=== PATIENT | female | born 1965 | race Caucasian/White ===

== ENCOUNTER 2017-11-30 14:40 | Emergency (ER) | payer MEDICARE, MEDICAID ==
[~2017-11-30] VITALS: Wt 73.2 kg
[~2017-11-30 14:40] MED LIST: ADVIL 200MG TA200 MG PO; AMITRIPTYLINE H50 M1 PO; ASPIR LOW81 MG PO; AUGMENTIN ES-6050 ML PO; BUSPIRONE HYDRO10 MG PO; CEFDINIR250 MG/5 M PO; COZAAR25 M1 PO; CYCLOBENZAPRINE10 M1 PO; DURAGESIC25 MCG/HR TD; DURAGESIC50 MCG/PAT TD; JANUVIA 100MG100 MG PO; KLONOPIN0.5 MG PO; LANTUS100 U/ML; LEVOTHYROXINE0.05 MG PO; LEXAPRO20 M1 PO; LISINOPRIL5 MG PO; PENICILLIN-VK500 M1 PO; PENICILLIN250 MG/52 PO; PREDNISONE10 MG PO; TYLENOL 325MG325 MG PO; [UNRECOGNIZED DRUG - CODE] PO
[2017-11-30] MEDS ORDERED: GLUCOPHAGE PO (14:47)
[2017-11-30] MEDS ORDERED: TRAMADOL 50 MG TAB PO (14:48)
[2017-11-30] MEDS ORDERED: PIOGLITAZONE HC15 MG PO (14:48)
[2017-11-30] MEDS ORDERED: NEXIUM 40MG40 MG PO (14:49)
[2017-11-30] MEDS ORDERED: SIMVASTATIN40 M1 PO (14:50)
[2017-11-30 15:57] LABS: ALBUMIN 4.3 g/dL (3.5-5.0); ALT/SGPT 18 U/L (9-52); AST-SGOT 17 U/L (14-36); CALCIUM 9.5 mg/dL (8.4-10.2); CARBON DIOXIDE 27 mmol/L (22-30); GLUCOSE 196 mg/dL (65-105); POTASSIUM 3.8 mmol/L (3.6-5.0); SODIUM 138 mmol/L (137-145); TOTAL BILIRUBIN 0.7 mg/dL (0.2-1.3); TOTAL PROTEIN 7.3 g/dL (6.3-8.2)
[2017-11-30 15:58] LABS: EOS # 0.1 (0.04-0.40); EOS % 0.4 % (1.0-5.0); HEMATOCRIT 41.9 % (37.0-47.0); LYMPH# 2.1 (1.50-4.00); MEAN CELL VOLUME 84 fl (78-100); MEAN CORPUSCULAR HEMOGLOBIN 28 pg (27-31); MEAN CORPUSCULAR HGB CONC 33 g/dL (33-37); MEAN PLATELET VOLUME 10.2 fl (7.4-10.4); MONO # 0.6 (0.20-0.80); PLATELET COUNT 233 K/mm3 (130-400); RED BLOOD COUNT 5.01 M/mm3 (4.10-5.30); RED CELL DISTRIBUTION WIDTH 13.5 % (11.5-14.5); WHITE BLOOD COUNT 14.3 K/mm3 (4.8-10.8)
[2017-11-30 16:07] LABS: NEU # 11.4 (1.40-6.50)
[2017-11-30 16:24] LABS: ALCOHOL IN-HOUSE < 10 mg/dL
[2017-11-30 16:42] LABS: URINE APPEARANCE CLEAR; URINE COLOR YELLOW
[2017-11-30 16:43] LABS: URINE BILIRUBIN NEGATIVE (NEGATIVE); URINE BLOOD NEGATIVE (NEGATIVE); URINE GLUCOSE 50 mg/dL mg/dL (NEGATIVE); URINE KETONE NEGATIVE (NEGATIVE); URINE LEUKOCYTE ESTERASE NEGATIVE (NEGATIVE); URINE NITRATE NEGATIVE (NEGATIVE); URINE PROTEIN(semi-quant) NEGATIVE (NEGATIVE); URINE UROBILINOGEN NORMAL (NORMAL); URINE WBC 0-1 /hpf (0-3)
[2017-11-30 20:17] VITALS: BP 117/75
== END 2017-11-30 20:18 | disposition home or self-care (01) ==
LOC: ED 14:40
PROVIDERS: Nurse Practitioner Primary Care
DX: F33.9 Major depressive disorder, recurrent, unspecified (principal); I10 Essential (primary) hypertension; E11.9 Type 2 diabetes mellitus without complications; G89.4 Chronic pain syndrome
CPT/HCPCS: J7030

== ENCOUNTER 2018-01-11 13:00 | Outpatient (RCR) | payer MEDICARE, MEDICAID ==
[~2018-01-11 13:00] MED LIST changes: +GLUCOPHAGE PO; +NEXIUM 40MG40 MG PO; +PIOGLITAZONE HC15 MG PO; +SIMVASTATIN40 M1 PO; +TRAMADOL 50 MG TAB PO
== END 2018-01-11 13:30 | disposition home or self-care (01) ==
LOC: PT 13:00
DX: M54.2 Cervicalgia (principal)
CPT/HCPCS: G8981-GP; G8982-GP

== ENCOUNTER → 2021-08-03 | Outpatient (CLI) | payer MEDICARE, MEDICAID ==
[~2021-08-03] MED LIST changes: +REXULTI3 MG PO
== END ==
LOC: MAMMO 10:34
DX: Z12.31 Encounter for screening mammogram for malignant neoplasm of breast (principal)

== ENCOUNTER 2021-10-16 11:49 | Emergency (ER) | payer MEDICARE, MEDICAID ==
[2021-10-16 11:58] VITALS: BP 137/82
[2021-10-16] MEDS ORDERED: [UNRECOGNIZED DRUG - SUPPLY] (12:00)
[2021-10-16] MEDS ORDERED: DURAGESIC25 MCG/PAT TD (12:00)
[2021-10-16] MEDS ORDERED: LOSARTAN POTASS25 MG PO (12:00)
[2021-10-16] MEDS ORDERED: ROSUVASTATIN CA10 MG PO (12:00)
[2021-10-16] MEDS ORDERED: BUSPAR 30MG30 MG/TAB PO (12:02)
== END 2021-10-16 13:19 | disposition home or self-care (01) ==
LOC: ED 11:49
DX: S20.212A Contusion of left front wall of thorax, initial encounter (principal); Z88.6 Allergy status to analgesic agent; Z28.310 Unvaccinated for COVID-19; W18.30XA Fall on same level, unspecified, initial encounter; Y93.01 Activity, walking, marching and hiking

== ENCOUNTER 2023-03-27 10:04 | Outpatient (RCR) | payer MEDICARE, MEDICAID ==
[~2023-03-27 10:04] MED LIST changes: +BUSPAR 30MG30 MG/TAB PO; +DURAGESIC25 MCG/PAT TD; +LOSARTAN POTASS25 MG PO; +ROSUVASTATIN CA10 MG PO; +[UNRECOGNIZED DRUG - SUPPLY]
== END 2023-04-12 | disposition home or self-care (01) ==
LOC: PT
DX: M25.511 Pain in right shoulder (principal); M54.6 Pain in thoracic spine; G89.29 Other chronic pain

== ENCOUNTER 2023-09-30 19:17 | Emergency (ER) | payer MEDICAID ==
[~2023-09-30 19:17] MED LIST changes: -ASPIR LOW81 MG PO; +LOW DOSE ASPIRI81 M1 PO
[2023-09-30 19:26] VITALS: BP 156/77
[2023-09-30] MEDS ORDERED: BASAGLAR K100 UNIT/1 SQ (19:42)
[2023-09-30] MEDS ORDERED: OZEMPIC1 MG/0.71 SQ (19:43)
[2023-09-30] MEDS ORDERED: PRISTIQ ER25 MG PO (19:43)
[2023-09-30 20:20] LABS: URINE COLOR BROWN (YELLOW)
[2023-09-30 20:21] LABS: URINE APPEARANCE TURBID (CLEAR); URINE BILIRUBIN 1+ (NEGATIVE); URINE BLOOD 3+ (NEGATIVE); URINE GLUCOSE NEGATIVE (NEGATIVE); URINE KETONE NEGATIVE (NEGATIVE); URINE LEUKOCYTE ESTERASE 1+ (NEGATIVE); URINE NITRATE POSITIVE (NEGATIVE); URINE PROTEIN(semi-quant) 3+ (NEGATIVE)
[2023-09-30 20:22] LABS: URINE WBC 31-50 /hpf (0-3)
[2023-09-30 20:59] LABS: BASO # 0.06 K/mm3 (0.02-0.10); EOS # 0.15 K/mm3 (0.04-0.40); HEMATOCRIT 40.9 % (37.0-47.0); HEMOGLOBIN 13.5 g/dL (12.5-16.0); LYMPH# 4.65 K/mm3 (1.50-4.00); MEAN CELL VOLUME 86 fl (78-100); MEAN CORPUSCULAR HEMOGLOBIN 28 pg (27-31); MEAN CORPUSCULAR HGB CONC 33 g/dL (33-37); MEAN PLATELET VOLUME 9.5 fl (7.4-10.4); MONO # 1.06 K/mm3 (0.20-0.80); NEU # 8.49 K/mm3 (1.40-6.50); PLATELET COUNT 221 K/mm3 (130-400); RED BLOOD COUNT 4.78 M/mm3 (4.10-5.30); RED CELL DISTRIBUTION WIDTH 12.6 % (11.5-14.5); WHITE BLOOD COUNT 14.5 K/mm3 (4.8-10.8)
[2023-09-30] MEDS ORDERED: NS 1,000 ML IV SCH (21:00)
[2023-09-30] MEDS ORDERED: cefTRIAXone 1 G in Water For Injection,Sterile 10 ML IV ONE (21:00)
[2023-09-30 21:08] LABS: ALBUMIN 4.6 g/dL (3.5-5.0)
[2023-09-30 21:10] LABS: CALCIUM 9.9 mg/dL (8.3-10.5)
[2023-09-30 21:11] LABS: TOTAL PROTEIN 7.6 g/dL (6.4-8.3)
[2023-09-30 21:13] LABS: TOTAL BILIRUBIN 0.4 mg/dL (0.2-1.2)
[2023-09-30] MEDS ORDERED: ABILIFY 15MG TA15 MG PO (23:14)
[2023-09-30] MEDS ORDERED: AUVELITY ER 451 EACH PO (23:19)
[2023-10-01] MEDS ORDERED: PANTOPRAZOLE SO40 MG PO (23:16)
== END 2023-09-30 23:00 | disposition home or self-care (01) ==
LOC: ED 19:17
PROVIDERS: Internal Medicine; Physician Assistant
DX: N39.0 Urinary tract infection, site not specified (principal); E87.6 Hypokalemia; N12 Tubulo-interstitial nephritis, not specified as acute or chronic; Z88.0 Allergy status to penicillin; Z88.1 Allergy status to other antibiotic agents; Z88.2 Allergy status to sulfonamides; Z79.82 Long term (current) use of aspirin
CPT/HCPCS: J0696; J7030

== ENCOUNTER 2023-09-30 22:07 | Inpatient (IN) | payer MEDICAID ==
[~2023-09-30] VITALS: Ht 160 cm; Wt 81.3 kg
[~2023-09-30 22:07] MED LIST changes: +BASAGLAR K100 UNIT/1 SQ; +OZEMPIC1 MG/0.71 SQ; +PRISTIQ ER25 MG PO
[2023-09-30] MEDS ORDERED: Acetaminophen 500 MG TAB PO PRN (22:45)
[2023-09-30] MEDS ORDERED: Ondansetron 4 MG/2 ML VIAL IV PRN (22:45)
--- NOTE | 2023-09-30 22:45 | NUR ---
pt admitted to the floor at this time for UTI, pt ambulated to room 206 with ease. PT medications and allergies reveiwed with pt, pt to have official list/bottles brought in for clarification on medications we have questions on. pt has up ad jill orders as pt is very stable. pt has house keys, phone, phone director of capital giving, blood glucose monitoring system and purse. pt now resting in bed with call light in reach, pt confirms understanding of room functions and rules, pt denies any furhter needs at this time. pt currently has 125 ml/hr normal saline.
[2023-09-30] MEDS ORDERED: Losartan 50 MG TAB PO SCH (22:52)
[2023-09-30] MEDS ORDERED: metFORMIN 500 MG TAB PO SCH (22:56)
[2023-09-30] MEDS ORDERED: Losartan 25 MG TAB PO SCH (22:56)
[2023-09-30] MEDS ORDERED: Amitriptyline 25 MG TAB PO SCH (22:58)
[2023-09-30] MEDS ORDERED: traMADol 50 MG TAB PO PRN (23:00)
[2023-09-30] MEDS ORDERED: Dextrose 50% Water 25 GM/50 ML SYRINGE IV PRN (23:00)
[2023-09-30] MEDS ORDERED: NS 1,000 ML IV SCH (23:00)
[2023-09-30] MEDS ORDERED: cefTRIAXone 1 G in Water For Injection,Sterile 10 ML IV SCH (23:00)
[2023-09-30] MEDS ORDERED: Glucagon 1 MG VIAL IM PRN (23:00)
[2023-09-30] MEDS ORDERED: Dextrose (Glucose) 15 GM (4 x 3.75 GM) Chewable TAB PACK PO PRN (23:00)
[2023-09-30 23:02] VITALS: BP 141/73
[2023-09-30] MEDS ORDERED: ABILIFY 15MG TA15 MG PO (23:14)
[2023-09-30] MEDS ORDERED: AUVELITY ER 451 EACH PO (23:19)
[2023-10-01 02:24] VITALS: BP 102/65
[2023-10-01 05:33] VITALS: BP 114/72
[2023-10-01] MEDS ORDERED: Ibuprofen 200 MG TAB PO PRN (07:30)
[2023-10-01 08:59] LABS: BASO # 0.05 K/mm3 (0.02-0.10); EOS # 0.13 K/mm3 (0.04-0.40); EOS % 0.9 % (1.0-5.0); HEMATOCRIT 34.1 % (37.0-47.0); LYMPH# 3.06 K/mm3 (1.50-4.00); MEAN CELL VOLUME 86 fl (78-100); MEAN CORPUSCULAR HEMOGLOBIN 28 pg (27-31); MEAN CORPUSCULAR HGB CONC 33 g/dL (33-37); MEAN PLATELET VOLUME 9.6 fl (7.4-10.4); MONO # 0.83 K/mm3 (0.20-0.80); NEU # 10.13 K/mm3 (1.40-6.50); PLATELET COUNT 189 K/mm3 (130-400); RED BLOOD COUNT 3.98 M/mm3 (4.10-5.30); RED CELL DISTRIBUTION WIDTH 12.9 % (11.5-14.5); WHITE BLOOD COUNT 14.2 K/mm3 (4.8-10.8)
[2023-10-01] MEDS ORDERED: Ciprofloxacin 250 MG TAB PO SCH (09:00)
[2023-10-01] MEDS ORDERED: busPIRone 5 MG TAB PO SCH ×2 (09:00→21:00)
[2023-10-01 09:10] LABS: ALBUMIN 3.8 g/dL (3.5-5.0)
[2023-10-01 09:11] LABS: CALCIUM 8.6 mg/dL (8.3-10.5)
[2023-10-01 09:12] LABS: TOTAL PROTEIN 6.1 g/dL (6.4-8.3)
[2023-10-01 09:14] LABS: TOTAL BILIRUBIN 0.3 mg/dL (0.2-1.2)
[2023-10-01 09:24] LABS: HEMOGLOBIN 11.2 g/dL (12.5-16.0)
[2023-10-01 14:00] VITALS: BP 117/75
[2023-10-01 18:09] VITALS: BP 110/62
[2023-10-01] MEDS ORDERED: cefTRIAXone 1 G in Water For Injection,Sterile 10 ML IV SCH (21:00)
[2023-10-01] MEDS ORDERED: Amitriptyline 25 MG TAB PO SCH (21:00)
[2023-10-01] MEDS ORDERED: PANTOPRAZOLE SO40 MG PO (23:16)
--- NOTE | 2023-10-01 23:31 | NUR ---
PT ALERT AND ORIENTED X4, PT RESTING IN BED. PT REPORTS IMPROVED SYMPTOMS IN RELATION TO LOWER ABD PAIN AND LOWER BACK PAIN. STILL EXPERIENCING SOME DISCOMFORT WHEN URINATING. PT STATES SHE IS DOING WELL. PT ASSESSED WITHOUT COMPLICATION. MEDICATIONS WILL BE GIVEN LATE TONIGHT CONFUSION IS PRESENT AROUND DOSES. SON TO BRING IN MED AROUND 11
[2023-10-01] MEDS ORDERED: ARIPiprazole 10 MG TAB PO SCH (23:36)
[2023-10-02 00:17] VITALS: BP 129/79
--- NOTE | 2023-10-02 00:28 | NUR ---
pts son brought in medcations after 11 pm, this nurse took medications and confirmed them with provider kulwant to ensure pt recieved appropriate medications and doseages. pt agreeable to take medcations after evening medication time.
[2023-10-02 06:00] VITALS: BP 139/81
--- NOTE | 2023-10-02 06:57 | NUR ---
report to gatito noriega
[2023-10-02 09:08] LABS: BASO # 0.05 K/mm3 (0.02-0.10); EOS # 0.19 K/mm3 (0.04-0.40); EOS % 1.9 % (1.0-5.0); HEMATOCRIT 36.5 % (37.0-47.0); HEMOGLOBIN 11.9 g/dL (12.5-16.0); LYMPH# 2.36 K/mm3 (1.50-4.00); MEAN CELL VOLUME 87 fl (78-100); MEAN CORPUSCULAR HEMOGLOBIN 28 pg (27-31); MEAN CORPUSCULAR HGB CONC 33 g/dL (33-37); MEAN PLATELET VOLUME 9.5 fl (7.4-10.4); MONO # 0.56 K/mm3 (0.20-0.80); PLATELET COUNT 192 K/mm3 (130-400); RED CELL DISTRIBUTION WIDTH 12.8 % (11.5-14.5); WHITE BLOOD COUNT 10.1 K/mm3 (4.8-10.8)
[2023-10-02 09:13] LABS: CALCIUM 9.2 mg/dL (8.3-10.5)
[2023-10-02 09:14] LABS: TOTAL PROTEIN 6.6 g/dL (6.4-8.3)
[2023-10-02 09:16] LABS: TOTAL BILIRUBIN 0.2 mg/dL (0.2-1.2)
[2023-10-02 11:37] VITALS: BP 133/82
[2023-10-02] MEDS ORDERED: CIPRO500 M1 PO (14:03)
--- NOTE | 2023-10-02 15:51 | NUR ---
PATIENT IN BED FOR MOST OF THE DAY. SHE HAD COMPLAINTS OF A HEADACHE AND ENDED UP WANTING MOTRIN AROUND LUNCH TIME. SHE IS READY TO GO HOME AND SEE HER CAT. SHE HAS BEEN POLITE AND COOPERATIVE WITH CARE. LABS CAME BACK AND HER WBC IS TRENDING DOWN. PROVIDER GAVE ORDERS FOR PATIENT TO BE DISCHARGED.
--- NOTE | 2023-10-02 15:53 | NUR ---
PATIENT DISCHARGED AT 1533. SHE HAD ORDERS TO BE INDEPENDENT IN HER ROOM, SO PACKED UP ALL HER BELONGINGS. FOLLOW UP APPT WAS MADE WITH FOR 10/08/23 @1530 FOR 1 WEEK FOLLOW UP. CIPRO ORDER WAS FAXED TO BRADY [facility]. LABS AND CULTURE RESULTS WERE FAXED TO DR. PEREZ. PATIENT VOICED UNDERSTANDING REGARDING DISCHARGE INSTRUCTIONS AND DENIES ANY QUESTIONS. SHE WAS ESCORTED TO HER VEHICLE SHE DROVE HERSELF TO ER WHEN SHE WAS ADMITTED.
[2023-10-02] MEDS ORDERED: Ciprofloxacin 250 MG TAB PO SCH (21:00)
[2023-10-02] MEDS ORDERED: fentaNYL 25 MCG 72 HR PATCH TD SCH (21:00)
== END 2023-10-02 15:33 | disposition home or self-care (01) | DRG 872 ==
LOC: MED/SURG 22:07
PROVIDERS: ADMIT Physician Assistant
DX: A41.9 Sepsis, unspecified organism (principal); N39.0 Urinary tract infection, site not specified
CPT/HCPCS: J0696; J1650; J1815; J7030